=== PATIENT | female | born 1975 | race Caucasian/White ===

== ENCOUNTER → 2019-02-02 10:06 | Outpatient (CLI) | payer OTHER, SELFPAY ==
[2018-11-01 08:45] VITALS: BMI 40.4
[2019-02-02 10:27] LABS: Hematocrit 44.7 % (37-47); Hemoglobin 14.9 g/dl (12.0-15.0); Mean Corp Hgb Conc 33.3 g/gl (32-36); Mean Corpuscular Hgb 30.1 pg (27.0-32.0); Mean Corpuscular Volume 90.3 fL (81-99); Mean Platelet Vol. 10.7 fl (6.2-12.0); Platelet Count 282 K/mm3 (150-450); RBC Distribution Width CV 13.6 % (11.6-14.6); RBC Distribution Width SD 44.8 fl (35.1-43.9); Red Blood Count 4.95 M/mm3 (4.2-5.4); White Blood Count 8.4 K/mm3 (4.4-11.0)
[2019-02-02 10:28] LABS: Scan Indicated on CBC? Y/N NO
[2019-02-02 10:40] LABS: International Normalized Ratio 0.9; Prothrombin Time (Protime)PT. 12.4 SECONDS (11.7-14.9)
[2019-02-02 11:11] LABS: AST(SGOT) 23 U/L (15-37); Alanine Aminotransfer ALT/SGPT 34 U/L (13-56); Albumin, Serum 3.9 g/dL (3.2-5.0); Alkaline Phosphatase 180 U/L (45-117); Bilirubin, Direct 0.27 mg/dL (0.00-0.30); Globulin 3.9 g/dL (2.2-4.2); Protein, Total 7.8 g/dL (6.4-8.2)
== END ==
PROVIDERS: Family Provider Internal Medicine; PCP Internal Medicine; Referring Provider Internal Medicine Gastroenterology; Visit Provider Internal Medicine Gastroenterology
DX: K74.3 Primary biliary cirrhosis (principal)
CPT/HCPCS: 36415; 80076; 85027; 85610

== ENCOUNTER → 2019-03-25 17:00 | Outpatient (CLI) | payer OTHER, SELFPAY ==
[2018-11-01 08:45] VITALS: BMI 40.4
== END ==
PROVIDERS: Family Provider Internal Medicine; PCP Internal Medicine; Referring Provider Internal Medicine; Visit Provider Internal Medicine
DX: R19.7 Diarrhea, unspecified (principal)
CPT/HCPCS: 87506

== ENCOUNTER → 2019-05-10 13:18 | Outpatient (CLI) | payer OTHER, SELFPAY ==
[2018-11-01 08:45] VITALS: BMI 40.4
[2019-05-16 17:11] LABS: HPV Reflexed? NOT INDICATED
== END ==
PROVIDERS: Visit Provider Obstetrics & Gynecology
DX: Z12.4 Encounter for screening for malignant neoplasm of cervix (principal)
CPT/HCPCS: 87624; 88175; G0145

== ENCOUNTER → 2019-05-18 07:07 | Outpatient (CLI) | payer OTHER, SELFPAY ==
[2018-11-01 08:45] VITALS: BMI 40.4
--- NOTE | 2019-05-18 07:09 | BI_ITS ---
MAMMOGRAPHY - BILATERAL SCREENING REASON FOR EXAM: Female, 44 years old. Routine annual screening examination. PERTINENT HISTORY: Sister with breast cancer. TECHNIQUE: Digital bilateral breast margi (3D mammographic acquisition) in the CC and MLO projections. 2-D mediolateral oblique (MLO) and craniocaudad (CC) views of both breasts were obtained. CAD: Full Field Digital Mammography with Computer Added Detection was performed. COMPARISON: Comparison is made with prior outside examination dated May 12, 2018. FINDINGS: Breast Composition: The breasts are almost entirely fatty. There are no dominant masses or suspicious calcifications. Stable benign-appearing bilateral axillary lymph nodes. No other significant abnormalities are identified. There has been no significant change since the prior study. BI/SCREEN MAMM (CAD) W/MARGI BILAT IMPRESSION: Stable bilateral screening mammogram. Yearly follow-up mammogram recommended. (A) ASSESSMENT CATEGORY: BIRADS Category 2: Benign. A letter regarding these results will be sent to the patient by the facility within 30 days. Approximately 10% of breast cancers are not detected by mammography. A normal mammogram should not delay biopsy of a clinically suspicious abnormality. [id number] Electronically Signed: Jeffery Harrison, at 10:16 EDT , Service support ,
== END ==
PROVIDERS: Family Provider Internal Medicine; PCP Internal Medicine; Referring Provider Obstetrics & Gynecology; Visit Provider Obstetrics & Gynecology
DX: Z12.31 Encounter for screening mammogram for malignant neoplasm of breast (principal); Z80.3 Family history of malignant neoplasm of breast
CPT/HCPCS: 77063; 77067

== ENCOUNTER → 2019-06-07 10:43 | Outpatient (CLI) | payer OTHER, SELFPAY ==
[2018-11-01 08:45] VITALS: BMI 40.4
[2019-06-08 16:08] LABS: Endomysial Antibody IgA Negative (Negative)
[2019-06-08 16:46] LABS: Immunoglobulin A 287 mg/dL (87-352); t-Transglutaminase IgA <2 U/mL (0-3)
== END ==
PROVIDERS: Family Provider Internal Medicine; PCP Internal Medicine; Referring Provider Internal Medicine Gastroenterology; Visit Provider Internal Medicine Gastroenterology
DX: R19.7 Diarrhea, unspecified (principal)
CPT/HCPCS: 36415; 82784; 83516; 86140; 86255

== ENCOUNTER → 2020-01-09 13:52 | Outpatient (CLI) | payer OTHER, SELFPAY ==
[2018-11-01 08:45] VITALS: BMI 40.4
[2020-01-09 15:04] LABS: Erythrocyte Sedimentation Rate 20 mm/hr (0-20)
[2020-01-09 15:16] LABS: Prothrombin Time (Protime)PT. 12.4 SECONDS (11.7-14.9)
[2020-01-09 15:47] LABS: ALB/GLOB Ratio 1.1 RATIO (0.9-2.4); AST(SGOT) 42 U/L (15-37); Alanine Aminotransfer ALT/SGPT 55 U/L (13-56); Alkaline Phosphatase 169 U/L (45-117); Anion Gap 10 (5-15); BUN 11 mg/dL (7-18); BUN/Creat Ratio 13.4 RATIO (10-20); Chloride 105 mmol/L (98-107); Creatinine, Serum 0.82 mg/dL (0.55-1.02); EST Glomerular Filtration Rate 80 mL/min (>60); Est Glom Filt Rate - Afr Amer 97 mL/min (>60); Globulin 3.5 g/dL (2.2-4.2); Glucose 153 mg/dL (74-106); Potassium 4.2 mmol/L (3.5-5.1); Protein, Total 7.5 g/dL (6.4-8.2); Sodium Level 141 mmol/L (136-145)
[2020-01-11 09:21] LABS: AFP, Tumor Marker 6.3 ng/mL (0.0-8.3)
== END ==
PROVIDERS: PCP Internal Medicine; Referring Provider Internal Medicine Gastroenterology; Visit Provider Internal Medicine Gastroenterology
DX: E55.9 Vitamin D deficiency, unspecified (principal); R17 Unspecified jaundice
CPT/HCPCS: 36415; 80053; 82105; 82306; 85610; 85652

== ENCOUNTER → 2020-01-18 12:32 | Outpatient (CLI) | payer OTHER, SELFPAY ==
[2018-11-01 08:45] VITALS: BMI 40.4
--- NOTE | 2020-01-18 12:36 | BD_ITS ---
STUDY: DUAL ENERGY X-RAY ABSORPTIOMETRY / DXA REASON FOR EXAM: Female, 44 years old. Age of madiha 43. Pat is 267.1# and 66.25 and quot;. Pat takes Provera and a multi-vit. Does not exercise. Hx of a left hand fx. 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 TECHNIQUE: Bone Mineral Density (BMD) measurements of lumbar spine and bilateral hips were obtained. COMPARISON: None. FINDINGS: Lumbar Spine (L1-L4): g/cm2 (1.149) / T-score (-0.3) / Z-score (-0.3) Findings are suggestive of normal bone density with a low fracture risk. Left Femur Total: g/cm2 (0.988) / T-score (-0.2) / Z-score (0.1) Left Femoral Neck: g/cm2 (0.906) / T-score (-0.9) / Z-score (-0.4) Right Femur Total: g/cm2 (1.024) / T-score (0.1) / Z-score (0.4) Right Femoral Neck: g/cm2 (0.936) / T-score (-0.7) / Z-score (-0.2) BD/Dexa Bone Density Study IMPRESSION: The patient is considered normal as outlined below according to World [employer] Organization (WHO) criteria with a low fracture risk. Reference Information: The T-score is the number of standard deviations above or below the standard which is normal for young adults at their peak bone mineral density. The World Health Organization (WHO) interprets the T-scores as follows: Above -1 Normal bone density Between -1 and -2.5 Osteopenia Equal to / or below -2.5 Osteoporosis As a practical clinical guideline, osteopenia may be graded as follows: Mild -1 through -1.5 Moderate -1.6 through -2.0 Severe -2.1 through -2.4 The Z-score is the number of standard deviations above or below age-matched controls. A Z-score of less than -1.5 would be considered abnormal. References: 1. NIH Osteoporosis and Related Bone Diseases http://www.osteo.org 2. International Society for Clinical Densitometry http://www.iscd.org 3. National Osteoporosis Foundation http://www.nof.org Electronically Signed: Jeffery Harrison, at 15:21 EDT , Service support ,
== END ==
PROVIDERS: PCP Internal Medicine; Referring Provider Internal Medicine Gastroenterology; Visit Provider Internal Medicine Gastroenterology
DX: K83.1 Obstruction of bile duct (principal)
CPT/HCPCS: 77080

== ENCOUNTER → 2020-07-02 07:38 | Outpatient (CLI) | payer OTHER, SELFPAY ==
[2018-11-01 08:45] VITALS: BMI 40.4
--- NOTE | 2020-07-02 07:39 | BI_ITS ---
MAMMOGRAPHY - BILATERAL SCREENING REASON FOR EXAM: Female, 45 years old. Routine annual screening examination. PERTINENT HISTORY: Sister with breast cancer. TECHNIQUE: Digital bilateral breast margi (3D mammographic acquisition) in the CC and MLO projections. 2-D mediolateral oblique (MLO) and craniocaudad (CC) views of both breasts were obtained. CAD: Full Field Digital Mammography with Computer Added Detection was performed. COMPARISON: Comparison is made with prior examination dated 05/18/2019. FINDINGS: Breast Composition: The breasts are almost entirely fatty. There are no dominant masses or suspicious calcifications. Stable benign-appearing bilateral axillary lymph nodes. No other significant abnormalities are identified. There has been no significant change since the prior study. BI/SCREEN MAMM (CAD) W/MARGI BILAT IMPRESSION: Stable bilateral screening mammogram. Yearly follow-up mammogram recommended. (A) ASSESSMENT CATEGORY: BIRADS Category 2: Benign. A letter regarding these results will be sent to the patient by the facility within 30 days. Approximately 10% of breast cancers are not detected by mammography. A normal mammogram should not delay biopsy of a clinically suspicious abnormality. [id number] Electronically Signed: Jeffery Harrison, at 8:25 EST , Service support ,
== END ==
PROVIDERS: PCP Internal Medicine; Referring Provider Obstetrics & Gynecology; Visit Provider Obstetrics & Gynecology
DX: Z12.31 Encounter for screening mammogram for malignant neoplasm of breast (principal)
CPT/HCPCS: 77063; 77067

== ENCOUNTER → 2020-12-18 10:33 | Outpatient (CLI) | payer OTHER, SELFPAY ==
[2020-12-18 12:10] LABS: AST(SGOT) 38 U/L (15-37); Alanine Aminotransfer ALT/SGPT 53 U/L (13-56); Albumin, Serum 3.7 g/dL (3.2-5.0); Alkaline Phosphatase 190 U/L (45-117); Bilirubin, Direct 0.25 mg/dL (0.00-0.30); GGTP 216 U/L (5-55); Globulin 3.9 g/dL (2.2-4.2); Protein, Total 7.6 g/dL (6.4-8.2)
[2020-12-19 07:49] LABS: AFP, Tumor Marker 5.2 ng/mL (0.0-8.3)
== END ==
PROVIDERS: PCP Internal Medicine; Referring Provider Internal Medicine Gastroenterology; Visit Provider Internal Medicine Gastroenterology
DX: K74.60 Unspecified cirrhosis of liver (principal)
CPT/HCPCS: 36415; 80076; 82105; 82977

== ENCOUNTER → 2021-05-13 11:42 | Outpatient (CLI) | payer OTHER, SELFPAY ==
[2021-05-13 13:08] LABS: Vitamin B12 391 pg/mL (211-911); Vitamin D,25 Hydroxy 28.2 ng/mL
[2021-05-13 13:18] LABS: Hemoglobin A1c 8.4 % (3.8-5.6)
[2021-05-13 13:22] LABS: Thyroid Stim Hormone (TSH) 1.09 uIU/mL (0.358-3.74)
== END ==
PROVIDERS: PCP Internal Medicine; Referring Provider Internal Medicine; Visit Provider Internal Medicine
DX: R53.83 Other fatigue (principal)
CPT/HCPCS: 36415; 82306; 82607; 83036; 84443

== ENCOUNTER 2021-07-26 10:50 | Emergency (ER) | payer OTHER, SELFPAY ==
[2021-07-26 10:51] VITALS: BP 163/110; PULSE 75; RESP 16; TEMP 36.4; O2SAT 100; BMI 41.3
[2021-07-26 11:23] LABS: Squamous Epithelial Cells - UA 0 SEEN /hpf (5-10)
[2021-07-26 11:24] LABS: Mucous, Urine 0 SEEN /hpf (<or=2+)
--- NOTE | 2021-07-26 11:29 | CT_ITS ---
HISTORY: Left flank pain. TECHNIQUE: Helically acquired images were obtained of the abdomen and pelvis without oral or IV contrast as per renal stone protocol. A radiation dose optimization technique was used for this scan. # of images incl. paperwork: [id number]. COMPARISON: None. FINDINGS: LUNG BASES: Clear. BOWEL: Bowel including appendix nondilated. No focal pericolonic inflammatory change observed. PERITONEUM: No significant ascites. Prominent right upper quadrant lymph nodes measuring up to 1.8 cm. LIVER/BILIARY TRACT: Fatty liver, 18 cm in length.Cholecystectomy. SPLEEN: Upper limits of normal in size at 13.4 cm in length. PANCREAS: No peripancreatic inflammation. KIDNEYS AND URETERS: 2 mm left distal ureteral calculus without hydronephrosis or hydroureter. No right nephrolithiasis or obstructing ureterolithiasis. ADRENAL GLANDS: Non-enlarged. VESSELS: No abdominal aortic aneurysm. PELVIC ORGANS: Unremarkable. ABDOMINAL WALL: Tiny fat-containing umbilical hernia. BONES: L4 and L5 limbus vertebrae noted. CT/Abdomen/Pelvis without Cont IMPRESSION: 2 mm nonobstructing calculus in the left distal ureter. Hepatic steatosis with hepatomegaly. Borderline splenomegaly. Mild right upper quadrant lymphadenopathy, nonspecific. Individualized dose optimization techniques were used for this CT. at 1227 Reported and signed by: Diann Lane MD Electronically Signed: Diann Lane MD at 12:26 EST Tel , Service support ,
[2021-07-26 11:36] LABS: Color, Urine Yellow (Yellow); Glucose, Dipstick Normal (Normal); Ketone-Dipstick Negative (Negative); Leukocyte Esterase-Dipstick 25 /ul (Negative); Nitrite-Dipstick Negative (Negative); Occult Blood-Urine 250 /ul (Negative); Protein-Dipstick 30 mg/dl (Negative); Specific Gravity, Urine 1.025 (1.002-1.030); Urine Bilirubin Dipstick Negative (Negative); Urine Clarity Clear (Clear); Urine Urobilinogen Normal (Normal)
[2021-07-26 11:51] LABS: Bacteria 1+ /hpf (None Seen); Red Blood Cells-Urine 10-25 SEEN /hpf (0-5); White Blood Cells 0-5 SEEN /hpf (0-5)
[2021-07-26 12:03] LABS: Internal QC Validated? YES +Cl - CLEAR BKGD; Pregnancy, Urine Negative Negative
--- NOTE | 2021-07-26 12:06 | EDS_ITS ---
HPI HPI - GI History of Present Illness Chief Complaint: Flank Pain Informant: patient Abdominal Pain/Flank Pain Onset: Today (Several hours ago) Context: Sudden Onset (Mild initially, then worsening gradually) Timing: Continuous and Waxes and wanes Quality: Aching Location: Left Flank Current Severity: Moderate Maximum Severity: Moderate Worsened by: Nothing; Not Worsened By Movement Relieved by: Nothing Nausea/Vomiting/Emesis GI Symptom: Negative for Nausea and Vomiting Diarrhea/Melena/Hematochezia GI Symptom: Negative for Diarrhea, Melena and Hematochezia Associated Symptoms Associated Symptoms: Negative for Dysuria, Frequency, Hematuria and Urgency Narrative Narrative: Patient with sudden onset of left flank pain comes around to the left mid/upper lateral abdomen. Never had this before no history of stones, patient is not bad right now but has been waxing and waning. No nausea or vomiting or urinary symptoms. Usually has loose stools no constipation recently or bright red blood per rectum/melena. No systemic symptoms, fevers, chills, cough, shortness of breath, chest pain. [facility] Medical History Chest pain History of sepsis Hypertension Liver disease Home Medications metronidazole 500 mg PO Q12H #14 tab 09/30/14 [Rx Last Taken Unknown] amlodipine 5 mg tablet 5 mg PO DAILY 11/01/18 [History Last Taken Unknown] aspirin 81 mg tablet,delayed release 81 mg PO DAILY 11/01/18 [History Last Taken Unknown] azithromycin 250 mg tablet See Rx Instructions PO .COMPLEX #6 tab 11/01/18 [Rx Last Taken Unknown] cholecalciferol (vitamin D3) 50 mcg (2,000 unit) capsule 2,000 unit PO DAILY 11/01/18 [History Last Taken Unknown] famotidine 40 mg tablet 40 mg PO DAILY 11/01/18 [History Last Taken Unknown] multivitamin 1 tab PO DAILY 11/01/18 [History Last Taken Unknown] sertraline 25 mg tablet 25 mg PO DAILY 11/01/18 [History Last Taken Unknown] Allergy/AdvReac Type Severity Reaction Status Date / Time fluconazole [From Diflucan] Allergy Rash Verified 11/01/18 08:46 ondansetron [From Zofran] Allergy Rash Verified 07/26/21 10:53 Penicillins Allergy Rash Verified 11/01/18 08:46 Sulfa (Sulfonamide Allergy Other Verified 07/26/21 10:53 Antibiotics) Family History (Updated 11/01/18 @ 08:36 by Nisa Peñaloza) Other Hyperlipidemia Hypertension Surgical History (Updated 11/01/18 @ 08:38 by Nisa Peñaloza) H/O: hysterectomy Hx of cholecystectomy Social History Smoking Status: Never smoker ROS ROS ED Constitutional Constitutional ED: Denies chills or fever(s) Eyes Eyes: Denies change in vision or diplopia ENT ENT ED: Denies rhinorrhea or sore throat Cardiovascular Cardiovascular: Denies chest pain or palpitations Respiratory/Chest Respiratory/Chest: Denies cough or dyspnea Gastrointestinal Gastrointestinal: Reports abdominal pain; Denies diarrhea, nausea or vomiting Genitourinary Genitourinary ED: Reports dribbling and flank pain; Denies dysuria or hematuria Musculoskeletal Musculoskeletal: Reports back pain; Denies neck pain Integumentary Denies abscess or rash Neurologic Neurologic: Denies headache(s), paresthesias or weakness Psychiatric Psychiatric: Denies anxiety or suicidal thoughts EXAM Physical Exam Const Vital Signs: 07/26/21 10:51 Temperature 97.6 F L Temperature Source Temporal Pulse Rate 75 Respiratory Rate 16 Blood Pressure 163/110 H Blood Pressure Mean 127 Pulse Ox 100 Oxygen Delivery Method Room Air Positive well nourished, well developed and obese General Appearance ED: well developed and NAD Nutritional Appearance: obese HEENT Reports moist mucous membranes normocephalic and atraumatic Eyes PERRL and EOMs intact bilaterally Neck full ROM and supple Resp normal respiratory effort and clear to auscultation bilaterally Cardio regular rate, regular rhythm and no murmurs GI non-distended GI Narrative: Very mild tenderness to the very lateral mid/upper left abdomen without guarding or rebound tenderness or palpable mass. Auscultation: normoactive bowel sounds Palpation: soft Back/Spine no CVA tenderness General Back: other FROM Extremity normal to inspection General Extremety ED: Negative for edema, pulses abnormal or tenderness General Extremity: Negative for edema or pulses abnormal Neuro oriented x3, CN's II-XII intact bilaterally and no sensory deficits noted Sensorium / Orientation: awake and alert Motor Exam: strength 5/5 throughout Skin no rashes or lesions noted and no wounds MDM MDM MDM Narrative Medical decision making narrative: Work-up shows no signs of infection in the urine, there is blood and a 2 mm nonobstructing calculus in the left distal ureter. Patient is reassured, her pain is well controlled without the need for analgesics, likely because it is not obstructing right now but we discussed that that could change. She does not want a prescription for analgesics. She was given urine filters, expectant management is indicated at this time, we discussed reasons to return and follow-up and she is comfortable with that plan. Lab Data Attestation: I reviewed the patient's lab results. Labs: Laboratory Results - last 24 hr 07/26/21 11:15 Urine Color Yellow Urine Clarity Clear Urine pH 5.0 Ur Specific [place] 1.025 Urine Protein 30 H Urine Glucose (UA) Normal Urine Ketones Negative Urine Occult Blood 250 H Urine Nitrite Negative Urine Bilirubin Negative Urine Urobilinogen Normal Ur Leukocyte Esterase 25 H Urine RBC 10-25 SEEN Urine WBC 0-5 SEEN Ur Squamous Epith Cells 0 SEEN Urine Bacteria 1+ Urine Mucus 0 SEEN Urine Test Negative Radiography Diagnostic Testing: Clinical Impression(s) from Imaging Studies Abdomen/Pelvis CT 07/26/21 11:29 IMPRESSION: 2 mm nonobstructing calculus in the left distal ureter. Hepatic steatosis with hepatomegaly. Borderline splenomegaly. Mild right upper quadrant lymphadenopathy, nonspecific. Individualized dose optimization techniques were used for this CT. at 1227 Reported and signed by: Diann Lane MD Electronically Signed: Diann Lane MD at 12:26 EST Tel , Service support , Discharge Plan Triage Chief Complaint: Flank Pain ED Provider: Jozef De Luna Dx/Rx/DC Orders Clinical Impression: Renal colic on left side, Ureterolithiasis Instructions: ED Urine Strainer, ED Kidney Stone w/ Colic Prescriptions: No Action famotidine [Pepcid] 40 mg tablet 40 mg PO DAILY RF: 0 sertraline [Zoloft] 25 mg tablet 25 mg PO DAILY RF: 0 amlodipine [Norvasc] 5 mg tablet 5 mg PO DAILY RF: 0 cholecalciferol (vitamin D3) 2,000 unit capsule 2,000 unit PO DAILY RF: 0 aspirin [Adult Low Dose Aspirin] 81 mg tablet,delayed release (DR/EC) 81 mg PO DAILY RF: 0 multivitamin tablet 1 tab PO DAILY RF: 0 azithromycin 250 mg tablet See Rx Instructions PO .COMPLEX Qty: 6 RF: 0 metronidazole 500 MG tablet 500 mg PO Q12H Qty: 14 RF: 0 Primary Care Provider: Eliana Borjas Referrals: Kamla Richard MD [STAFF PHYSICIAN] - 10-14 Days if not better Eliana Borjas DO [Primary Care Provider] - Disposition Disposition: Home, Self Care
== END 2021-07-26 14:15 | disposition home or self-care (01) ==
PROVIDERS: Emergency Provider Emergency Medicine; PCP Internal Medicine
DX: N20.2 Calculus of kidney with calculus of ureter (principal); E66.9 Obesity, unspecified
CPT/HCPCS: 74176; 81001; 81025; 99282

== ENCOUNTER → 2021-07-31 11:45 | Outpatient (CLI) | payer OTHER, SELFPAY ==
[2021-07-31 12:50] LABS: Erythrocyte Sedimentation Rate 20 mm/hr (0-30)
[2021-07-31 13:04] LABS: Hemoglobin A1c 7.7 % (3.8-5.6)
[2021-07-31 13:12] LABS: LDH 266 U/L (84-246)
[2021-08-01 15:08] LABS: Anti-Centromere B Ab <0.2 AI (0.0-0.9); Anti-Chromatin <0.2 AI (0.0-0.9); Anti-Jo <0.2 AI (0.0-0.9); Anti-Scleroderma-70 AB <0.2 AI (0.0-0.9); RNP Ab <0.2 AI (0.0-0.9); SJOGREN'S Anti-SS-A test < 0.2 AI (0.0-0.9); SJOGREN'S Anti-SS-B test < 0.2 AI (0.0-0.9); Smith Ab <0.2 AI (0.0-0.9)
[2021-08-01 16:23] LABS: Anti-Mitochondrial AB <20.0 Units (0.0-20.0); Anti-dsDNA Ab <1 IU/mL (0-9)
[2021-08-04 16:08] LABS: Albumin 3.7 g/dL (2.9-4.4); Alpha-1-Globulins 0.2 g/dL (0.0-0.4); Alpha-2-Globulins 0.8 g/dL (0.4-1.0); Angiotensin Convert Enzyme 75 U/L (14-82); Cytoplasmic Ab (C-ANCA) <1:20 titer (Neg:<1:20); Gamma Globulin 0.9 g/dL (0.4-1.8); Immunoglobulin A 371 mg/dL (87-352); Immunoglobulin E 3 IU/mL (6-495); Immunoglobulin G 818 mg/dL (586-1602); Immunoglobulin M 242 mg/dL (26-217); PROEL- TOTAL PROTEIN 6.8 g/dL (6.0-8.5)
[2021-08-04 16:20] LABS: AFP, Tumor Marker 5.1 ng/mL (0.0-8.3); Anti-Smooth Muscle ABS 6 Units (0-19); Copper, Serum or Plasma 161 ug/dL (80-158); Perinuclear Ab (P-ANCA) <1:20 titer (Neg:<1:20)
== END ==
PROVIDERS: PCP Internal Medicine; Referring Provider Internal Medicine Gastroenterology; Visit Provider Internal Medicine Gastroenterology
DX: E11.9 Type 2 diabetes mellitus without complications (principal); K74.3 Primary biliary cirrhosis
CPT/HCPCS: 36415; 82105; 82164; 82390; 82525; 82784; 82785; 83036; 83516; 83615; 84165; 85652; 86140; 86225; 86235; 86256; 86334

== ENCOUNTER → 2021-08-18 08:58 | Outpatient (CLI) | payer OTHER, SELFPAY ==
[2021-08-18] VITALS (14 sets, daily range): BP systolic 102–151; BP diastolic 61–106; PULSE 58–86; RESP 11–20; TEMP 37.1; O2SAT 92–99; BMI 40.8
--- NOTE | 2021-08-18 | LIVB_PTH ---
PATIENT: MARTA MURPHY LOC: CT U#:[id number] AGE/SX: 50/F ROOM: RE08/18/[address]: Dr. Leonard Brewster DO : 1975 BED: DIS: SPEC #: [id number] RECD: 08/18/21 11:03 STATUS: HUA STELLA #: [id number] ALEC: 08/18/21 00:[address]: Leonard Brewster DEPT: SURGICAL PATHOLOGY RECD BY: Rose Henry ENTERED: 08/18/21 11:29 SP TYPE: LIVER BX OTHR DR: Dr. Eliana Borjas DO Tissues: Liver, NOS Procedures: PAS with Diastase (control) Trichrome (control) Special Stain Group II PAS Stain (control) Surgery Specimen Level V Retic (control) Iron Stain (control) HEADER OPERATION: CT-guided liver biopsy PRE-OP DIAGNOSIS: Hepatosplenomegaly TISSUE SUBMITTED: Liver 18-gauge core x4 MICROSCOPIC DIAGNOSIS Liver, CT-guided core biopsy: Liver parenchymal tissue with extensive macro- and microvesicular steatosis and changes consistent with primary biliary cirrhosis. See microscopic description and comment. SJ:emilie 08/19/2021 COMMENT Correlation with clinical, laboratory findings, radiologic findings and appropriate follow up are necessary. MICROSCOPIC DESCRIPTION Slides are reviewed. The specimen shows liver parenchymal tissue with extensive micro- and macrovesicular steatosis. Significant lobular inflammation is not seen. Portal areas show moderate chronic inflammation, predominantly consisting of lymphocytic infiltrates and with few of the portal areas markedly expanded forming ymphoid aggregate formation. Portal areas also show focal bile duct damage and granulomas formation. Focal minimal ductular proliferation is noted. Interface hepatitis is also noted. Iron stain shows absent iron. PAS stain with and without diastase do not show abnormal accumulation of protein. Reticulin and trichrome stains show increased portal and periportal fibrosis with focal bridging fibrosis. Obvious cirrhosis is not seen. All stains are performed with appropriate matched controls. GROSS DESCRIPTION Received in fixative is one container labeled with the patient's name and designated liver. The specimen consists of four elongated fragments of godwin soft tissue each measuring 2 cm in length and 0.1 cm in diameter. The entire specimen is submitted in one cassette. / SJ:rg 08/18/21 TC:5 [facility]: [id number], [id number] x5 ADDENDUM ADDENDUM ADDENDUM ADDENDUM ADDENDUM ADDENDUM ADDENDUM ADDENDUM ADDENDUM ADDENDUM ADDENDUM ADDENDUM ADDENDUM ADDENDUM ADDENDUM 09/01/2021 10:10 ADDENDUM 09/01/2021 10:10 ADDENDUM 09/01/2021 10:10 ADDENDUM 09/01/2021 10:10 ADDENDUM 09/01/2021 10:10 Liver biopsy: Liver biopsy showing duct lesion and epithelioid granulomas. Marked micro and macrovesicular steatosis also present. SJ:emilie 09/01/2021 The specimen is sent to [facility] for expert opinion, reviewed by Dr. Aaron Wallis and the above diagnosis is rendered. Dr. Wallis also comments ?the histologic findings are consistent with primary biliary cirrhosis (cholangitis)(stage 1-2/4). 10% of the patients can be AMA negative. In addition, steatohepatitis should be also considered.? The complete report is viewable in the patient's EMR. Case has been reviewed in consultation with Dr. Adkins who concurs with the above diagnosis. IDC:[id number]
--- NOTE | 2021-08-18 09:11 | CT_ITS ---
PROCEDURE: CT-guided percutaneous liver biopsy. CLINICAL HISTORY: Female, 46 years old. hepatosplenomegaly SEDATION: VERSED: 2 mg and FENTANYL 100 mcg intravenous. PERFORMING PHYSICIAN: Kodak Christy MD DATE OF PROCEDURE: 08/18/2021 ENGINEERING LEADER: NONE ESTIMATED BLOOD LOSS: Negligible SPECIMENS REMOVED: Sample sent to laboratory with appropriate orders. COMPLICATIONS: None PT-PTT Levels Checked: Yes TECHNIQUE: The procedure, risks, alternatives and complications were explained to the patient and written informed consent was obtained. Patient oriented dose modulation technique utilized. Patient was positioned supine on the CT table. A timeout procedure was obtained. Contiguous axial CT scanner images of the liver were obtained biopsy of the right lobe of the liver was decided after which the access tract was identified. Access site was marked on the patient''s skin after which the overlying skin was prepared in standard, sterile fashion. The skin was anesthetized with 2% lidocaine and a small skin incision was made. Under CT fluoroscopic guidance a 17-gauge coaxial introducer needle was intermittently advanced into the right lobe of the liver. An 18 gauge coaxial core biopsy needle was then inserted through the needle and 4 core biopsy specimens were obtained, placed in formalin and sent to the lab for analysis. Gelfoam embolization of the biopsy site and access tract was performed after which the access needle was removed and sterile dressing was applied. Follow-up evaluation demonstrates no evidence of complications. The patient tolerated the procedure well with no immediate complications and was transferred to recovery in stable condition. CT/Biopsy/Inj or Needle Placement IMPRESSION: Technically successful percutaneous CT guided liver biopsy, Four 18-gauge core biopsy specimens obtained and sent to lab for analysis. Electronically Signed: Kodak Christy MD at 11:38 EST Tel , Service support ,
[2021-08-18 09:13] LABS: Platelet Count 287 K/mm3 (150-450)
[2021-08-18 09:22] LABS: International Normalized Ratio 0.8; Partial Thromboplast Time 25.5 Seconds (24.1-36.2)
[2021-08-18] MEDS: Midazolam 2 MG/2 ML Syringe IV ×2 (10:22→10:33)
[2021-08-18] MEDS: fentaNYL 100 MCG/2 ML Ampul IV ×2 (10:24→10:35)
[2021-08-18] MEDS: Lidocaine 2% (20 ml mdv) 20 ML Vial INFILT (10:34)
== END | disposition home or self-care (01) ==
PROVIDERS: PCP Internal Medicine; Referring Provider Internal Medicine Gastroenterology; Visit Provider Internal Medicine Gastroenterology
DX: R16.2 Hepatomegaly with splenomegaly, not elsewhere classified (principal); K74.3 Primary biliary cirrhosis
CPT/HCPCS: 47000; 36415; 77012; 85049; 85610; 85730; 88307; 88313; 99156; J7040; A4216

== ENCOUNTER 2021-08-29 09:32 | Outpatient (CLI) | payer OTHER, SELFPAY ==
--- NOTE | 2021-08-29 09:34 | US_ITS ---
STUDY: ABDOMINAL ULTRASOUND - RIGHT UPPER QUADRANT REASON FOR VISIT: Female, 46 years old . Hepatosplenomegaly. TECHNIQUE: Ultrasound evaluation of the right upper quadrant was performed with real-time and static sims-scale imaging. TECHNICAL QUALITY: Adequate. COMPARISON: None. FINDINGS: Liver: The liver measures 16.7 cm. There is increased echogenicity consistent with fatty infiltration. The bile ducts are within normal limits. There is hepatic color flow. The direction of portal flow is hepatopetal. There is no demonstrated mass lesion. Gallbladder: The patient is status post cholecystectomy. Common Bile Duct (C.B.D.): The common bile duct measures 5.9 mm. Pancreas: Normal size of the head, body and tail of the pancreas. There is normal echogenicity of the pancreas. There is no demonstrated pancreatic mass or cyst. Right Kidney: Normal size of the right kidney. The right kidney measures 11.5 cm x 5.1 cm x 3.9 cm. Normal renal cortex. The right cortex measures 1.3 cm. There is no demonstrated renal mass or cyst. There is no right hydronephrosis. US/Liver IMPRESSION: Fatty infiltration of the liver. Status post cholecystectomy. Electronically Signed: Jeffery Harrison MD at 12:55 EST , Service support ,
--- NOTE | 2021-08-29 09:34 | US_ITS ---
STUDY: ABDOMINAL ULTRASOUND - ELASTOGRAPHY REASON FOR VISIT: Female, 46 years old. Hepatosplenomegaly. TECHNIQUE: Liver stiffness measurements were obtained on a [employer] RS 85 ultrasound machine using a CA 1-7 probe following the SRU guidelines. 3 measurements were obtained using a 2-D-SWE method. The IQR/M was 22% suggesting a quality data set. TECHNICAL QUALITY: Adequate. COMPARISON: Comparison is made with prior sonogram of the right upper quadrant done earlier today. FINDINGS: Liver: Fatty infiltration of the liver. Median liver stiffness measured 8.1 kPa. US/Elastography Parenchyma/Organ IMPRESSION: Liver stiffness measures 8.1 kPa compatible with F 2/F3 Metavir score. Electronically Signed: Jeffery Harrison MD at 12:57 EST , Service support ,
== END 2021-08-29 23:59 | disposition short-term general hospital (02) ==
LOC: US 09:33
PROVIDERS: PCP Internal Medicine; Referring Provider Internal Medicine Gastroenterology; Visit Provider Internal Medicine Gastroenterology
DX: R16.2 Hepatomegaly with splenomegaly, not elsewhere classified (principal); K74.3 Primary biliary cirrhosis
CPT/HCPCS: 76705; 76981

== ENCOUNTER → 2021-10-30 07:12 | Outpatient (CLI) | payer OTHER, SELFPAY ==
[2021-10-30 08:46] LABS: Hemoglobin A1c 6.9 % (3.8-5.6)
== END ==
PROVIDERS: PCP Internal Medicine; Referring Provider Internal Medicine; Visit Provider Internal Medicine
DX: E11.9 Type 2 diabetes mellitus without complications (principal)
CPT/HCPCS: 36415; 83036

== ENCOUNTER 2021-11-11 10:00 | Outpatient (RCR) | payer OTHER, SELFPAY | END 2021-11-20 23:59 | LOC: DC 10:00 | PROVIDERS: PCP Internal Medicine; Referring Provider Nurse Practitioner Adult Health; Visit Provider Nurse Practitioner Adult Health | DX: E11.69 Type 2 diabetes mellitus with other specified complication (principal); E66.01 Morbid (severe) obesity due to excess calories | CPT/HCPCS: 97802; G0108 ==

== ENCOUNTER 2021-11-27 07:05 | Outpatient (CLI) | payer OTHER, SELFPAY ==
--- NOTE | 2021-11-27 07:08 | BI_ITS ---
MAMMOGRAPHY - BILATERAL SCREENING REASON FOR EXAM: Female, 46 years old. Routine annual screening examination. PERTINENT HISTORY: Sister with breast cancer. TECHNIQUE: Digital bilateral breast margi (3D mammographic acquisition) in the CC and MLO projections. 2-D mediolateral oblique (MLO) and craniocaudad (CC) views of both breasts were obtained. CAD: Full Field Digital Mammography with Computer Added Detection was performed. COMPARISON: Comparison is made with prior examination dated 07/02/2020 and 05/18/2019. FINDINGS: Breast Composition: The breasts are almost entirely fatty. There are no dominant masses or suspicious calcifications. Stable small benign-appearing bilateral axillary lymph nodes. No other significant abnormalities are identified. There has been no significant change since the prior study. BI/SCRN MAMM (CAD)W/MARGI BILAT IMPRESSION: Stable bilateral screening mammogram. Yearly follow-up mammogram recommended. (A) ASSESSMENT CATEGORY: BIRADS Category 2: Benign. A letter regarding these results will be sent to the patient by the facility within 30 days. Approximately 10% of breast cancers are not detected by mammography. A normal mammogram should not delay biopsy of a clinically suspicious abnormality. [id number] Electronically Signed: Jeffery Harrison MD at 8:56 EDT ,
== END 2021-11-27 23:59 | disposition home or self-care (01) ==
LOC: OPBI 07:06
PROVIDERS: PCP Internal Medicine; Referring Provider Obstetrics & Gynecology; Visit Provider Obstetrics & Gynecology
DX: Z12.31 Encounter for screening mammogram for malignant neoplasm of breast (principal)
CPT/HCPCS: 77063; 77067

== ENCOUNTER 2021-12-08 08:52 | Outpatient (RCR) | payer OTHER, SELFPAY | END 2021-12-20 23:59 | LOC: DC 08:52 | PROVIDERS: PCP Internal Medicine; Referring Provider Nurse Practitioner Adult Health; Visit Provider Nurse Practitioner Adult Health | DX: E11.69 Type 2 diabetes mellitus with other specified complication (principal); E66.01 Morbid (severe) obesity due to excess calories | CPT/HCPCS: 97803 ==

== ENCOUNTER → 2021-12-17 | Outpatient (CLI) | payer OTHER, SELFPAY ==
[2021-12-23 10:37] LABS: HPV Reflexed? NOT INDICATED
== END | disposition home or self-care (01) ==
LOC: LABSPEC 12:09
PROVIDERS: PCP Internal Medicine; Visit Provider Obstetrics & Gynecology
DX: Z12.4 Encounter for screening for malignant neoplasm of cervix (principal)
CPT/HCPCS: 88175; G0145

== ENCOUNTER 2022-01-05 11:00 | Outpatient (RCR) | payer OTHER, SELFPAY | END 2022-01-20 23:59 | LOC: DC 11:00 | PROVIDERS: PCP Internal Medicine; Referring Provider Nurse Practitioner Adult Health; Visit Provider Nurse Practitioner Adult Health | DX: E11.69 Type 2 diabetes mellitus with other specified complication (principal); E66.01 Morbid (severe) obesity due to excess calories | CPT/HCPCS: 97803; G0108 ==

== ENCOUNTER → 2022-01-28 | Outpatient (CLI) | payer OTHER, SELFPAY ==
[2022-01-28 16:26] LABS: Hemoglobin A1c 6.5 % (3.8-5.6)
== END | disposition home or self-care (01) ==
LOC: LAB 14:10
PROVIDERS: PCP Internal Medicine; Referring Provider Internal Medicine; Visit Provider Internal Medicine
DX: E11.9 Type 2 diabetes mellitus without complications (principal)
CPT/HCPCS: 36415; 83036

== ENCOUNTER 2022-02-12 10:59 | Outpatient (RCR) | payer OTHER, SELFPAY | END 2022-02-12 23:59 | disposition home or self-care (01) | LOC: DC 10:59 | PROVIDERS: PCP Internal Medicine; Referring Provider Nurse Practitioner Adult Health; Visit Provider Nurse Practitioner Adult Health | DX: E11.69 Type 2 diabetes mellitus with other specified complication (principal); E66.01 Morbid (severe) obesity due to excess calories | CPT/HCPCS: 97803 ==

== ENCOUNTER 2022-03-26 12:10 | Outpatient (RCR) | payer OTHER, SELFPAY | END 2022-04-22 23:59 | LOC: DC 12:10 | PROVIDERS: PCP Internal Medicine; Referring Provider Nurse Practitioner Adult Health; Visit Provider Nurse Practitioner Adult Health | DX: E11.69 Type 2 diabetes mellitus with other specified complication (principal); E66.01 Morbid (severe) obesity due to excess calories ==